=== PATIENT | male | born 1955 | race American Indian/Alaskan Native ===

== ENCOUNTER 2018-01-26 08:10 | Emergency (ER) | payer OTHER ==
[2018-01-26 09:27] LABS: Bilirubin,Urine NEG (Negative); Blood,Urine NEG (Negative); Color,Urine Yellow (Yellow); Protein,Urine <15 mg/dL mg/dL (Negative); Urobilinogen,Urine < 2.0 mg/dL (<2.0); WBC,Urine < 1.0 /HPF (0.0-6.0)
[2018-01-26 10:09] LABS: Basophils % (Auto) 0.2 % (0.0-1.8); Eosinophils % (Auto) 0.1 % (0.0-4.3); Hematocrit 41.6 % (35.5-45.6); Lymphocytes # (Auto) 1.6 K/mm3 (1.2-5.4); Lymphocytes % (Auto) 11.8 % (13.4-35.0); Mean Corpuscular HGB Conc 34 % (32-34); Mean Corpuscular Hemoglobin 29 pg (28-32); Mean Corpuscular Volume 87 fl (84-94); Monocytes # (Auto) 0.7 K/mm3 (0.0-0.8); Monocytes % (Auto) 5.3 % (0.0-7.3); Platelet Count 209 K/mm3 (140-440); Red Cell Distribution Width 14.9 % (13.2-15.2)
[2018-01-26 10:16] LABS: BUN/Creatinine Ratio 15; Blood Urea Nitrogen 12 mg/dL (9-20); Calcium 8.2 mg/dL (8.4-10.2); Hemolysis Index 6
--- NOTE | 2018-01-26 11:31 | Emergency Department Report ---
ED General Adult HPI - General Chief complaint: Urogenital-Male Stated complaint: TROUBLE URINATING Time Seen by Provider: 01/26/18 09:29 Source: family Mode of arrival: Ambulatory Limitations: No Limitations - History of Present Illness Initial comments: Patient states he is not able to urinate. He has had progressive symptoms for 3 days. A Dumont was placed prior to my encounter. This relieved his symptoms. He stated that he thought he might be urinating less because his metoprolol was decreased. He did not take any blood pressure medicine today whatsoever. He has a history of benign prostatic hypertrophy with a PSA of 17. According to what he is telling me his biopsy was negative. He is a regular patient of [facility]. -: Gradual, days(s) Severity scale (0 -10): 0 Associated Symptoms: denies other symptoms Treatments Prior to Arrival: none - Related Data Allergies Allergy/AdvReac Type Severity Reaction Status Date / Time Penicillins Allergy Rash Verified 01/26/18 08:17 ED Review of Systems ROS: Stated complaint: TROUBLE URINATING Other details as noted in HPI Constitutional: denies: chills, fever Eyes: denies: eye pain, eye discharge, vision change ENT: denies: ear pain, throat pain Respiratory: denies: cough, shortness of breath, wheezing Cardiovascular: denies: chest pain, palpitations Endocrine: no symptoms reported Gastrointestinal: denies: abdominal pain, nausea, diarrhea Genitourinary: as per HPI, other (hesitancy and retention). denies: dysuria Musculoskeletal: denies: back pain, joint swelling, arthralgia Skin: denies: rash, lesions Neurological: denies: headache, weakness, paresthesias Psychiatric: denies: anxiety, depression Hematological/Lymphatic: denies: easy bleeding, easy bruising ED Past Medical Hx - Past Medical History Previous Medical History?: Yes Hx Hypertension: Yes Additional medical history: Enlarged prostate. - Surgical History Past Surgical History?: No - Social History Smoking Status: Never Smoker Substance Use Type: Alcohol ED Physical Exam - General Limitations: No Limitations General appearance: alert, in no apparent distress - Head Head exam: Present: atraumatic, normocephalic - Eye Eye exam: Present: normal appearance. Absent: scleral icterus - ENT ENT exam: Present: mucous membranes moist - Neck Neck exam: Present: normal inspection - Respiratory Respiratory exam: Present: normal lung sounds bilaterally. Absent: respiratory distress - Cardiovascular Cardiovascular Exam: Present: regular rate, normal rhythm. Absent: systolic murmur, diastolic murmur, rubs, gallop - GI/Abdominal GI/Abdominal exam: Present: soft, normal bowel sounds. Absent: distended, tenderness, guarding, rebound, rigid - Rectal Rectal exam: Present: deferred - Extremities Exam Extremities exam: Present: normal inspection - Back Exam Back exam: Present: normal inspection - Neurological Exam Neurological exam: Present: alert, oriented X3, CN II-XII intact. Absent: motor sensory deficit - Psychiatric Psychiatric exam: Present: normal affect, normal mood - Skin Skin exam: Present: warm, dry, intact, normal color. Absent: rash ED Course Vital Signs 01/26/18 01/26/18 08:19 10:20 Temperature 98.6 F 98.0 F Pulse Rate 90 60 Respiratory 22 18 Rate Blood Pressure 184/104 157/81 [Right] O2 Sat by Pulse 99 99 Oximetry - Reevaluation(s) Reevaluation #1: Residual volume was greater than 900 mL 01/26/18 11:35 ED Medical Decision Making - Lab Data Result diagrams: 01/26/18 09:41 01/26/18 09:41 Laboratory Results - last 24 hr 01/26/18 01/26/18 01/26/18 09:41 09:41 Unknown WBC 13.2 H RBC 4.80 Hgb 14.0 Hct 41.6 MCV 87 MCH 29 MCHC 34 RDW 14.9 Plt Count 209 Lymph % (Auto) 11.[address] [place] % (Auto) 5.3 Eos % (Auto) 0.1 Baso % (Auto) 0.2 Lymph # 1.6 [place] # 0.7 Eos # 0.0 Baso # 0.0 Seg Neutrophils % 82.6 H Seg Neutrophils # 10.9 H Sodium 137 Potassium 4.2 Chloride 99.4 Carbon Dioxide 23 Anion Gap 19 BUN 12 Creatinine 0.8 Estimated GFR > 60 BUN/Creatinine Ratio 15 Glucose 79 Calcium 8.2 L Urine Color Yellow Urine Turbidity Clear Urine pH 5.0 Ur Specific [place] 1.008 Urine Protein <15 mg/dl Urine Glucose (UA) Neg Urine Ketones Neg Urine Blood Neg Urine Nitrite Neg Urine Bilirubin Neg Urine Urobilinogen < 2.0 Ur Leukocyte Esterase Neg Urine WBC (Auto) < 1.0 Urine RBC (Auto) 5.0 Critical care attestation.: If time is entered above; I have spent that time in minutes in the direct care of this critically ill patient, excluding procedure time. ED Disposition Clinical Impression: Bladder outlet obstruction Disposition: DC-01 TO HOME OR SELFCARE Is pt being admited?: No Does the pt Need Aspirin: No Condition: Stable Instructions: Dumont Catheter Placement and Care (ED), Urinary Leg Bag (GEN) Additional Instructions: Return any acute change or problem. Follow-up with your urology physician. Referrals: ALMAS ARMAS [Primary Care Provider] - 3-5 Days [facility] [Provider Group] - 2-3 Days Time of Disposition: 11:36
[2018-01-26 14:08] VITALS: BP 157/86
== END 2018-01-26 13:05 | disposition home or self-care (01) ==
LOC: ED 08:10
DX: N32.0 Bladder-neck obstruction (principal); I10 Essential (primary) hypertension; N40.0 Benign prostatic hyperplasia without lower urinary tract symptoms
CPT/HCPCS: 36415; 51702; 80048; 81001; 84153; 85025; 99283